=== PATIENT | female | born 1975 | race Caucasian/White ===

== ENCOUNTER 2023-09-13 10:04 | Emergency (ER) | payer OTHER, SELFPAY ==
[2023-09-13 10:05] VITALS: BP 124/87; PULSE 103; RESP 16; TEMP 37.1; O2SAT 100; BMI 45.9
--- NOTE | 2023-09-13 10:20 | EX.ED.DYSGE1 ---
HPI History of Present Illness Chief Complaint: Cold Sx Detail of Chief Complaint: Like symptoms Informant: patient and spouse/S.O. Onset/Context/Timing Onset: Days (Monday, September 10) Context: Sudden Onset Timing: Continuous and Waxes and wanes Quality: Flulike symptoms Location: Respiratory and GI Current Severity: Moderate Maximum Severity: Severe Worsened by: Nothing specific Relieved by: nothing Associated Symptoms Associated Symptoms: Document in the HPI narrative Narrative Narrative: Patient is a 48-year-old woman with history of obesity on medication for obesity and fibromyalgia who presents with flulike symptoms. She has been exposed to multiple workers with influenza type B. She is concerned that she may have it. Apparently she has a grandchild that is immune suppressed and would like to know since she exposed him yesterday. She does report fever, chills, rhinorrhea, congestion, sore throat. Her cough is nonproductive. She has had intermittent wheezing. She also endorses intermittent shortness of breath at rest and has dyspnea on exertion compared to normal. She denies history of VTE. She has no risk factors for VTE. She denies leg pain, swelling discoloration. She denies symptoms of claudication. She does report abdominal pain with nausea, which she states is minimal. She has had 4 loose stools in the last 3 hours. She has not noted any blood or mucus in her stool. She does endorse thirst, dry mouth, orthostatic lightheadedness and decreased urine output. She has no other urinary symptoms. Prior similar symptoms: No Recent Illness/Hospitalization: No PFSH PFSH Medical History (Updated 09/13/23 @ 12:[address] Tera Ervin MD) Cough Allergy/AdvReac Type Severity Reaction Status Date / Time acetaminophen [From Vicodin] Allergy Mild Hives Verified 09/13/23 10:14 cephalexin [From Keflex] Allergy Mild Hives Verified 09/13/23 10:14 clams Allergy Mild Anaphylaxis Verified 09/13/23 10:14 codeine Allergy Mild Hives Verified 09/13/23 10:14 hydrocodone [From Vicodin] Allergy Mild Hives Verified 09/13/23 10:14 Surgical History no surgical history no surgical history Social History (Updated 09/13/23 @ 10:[address] Tera Ervin MD) household members: spouse Smoking Status: Unknown if ever smoked substance use type: does not use ROS ROS ED Constitutional Constitutional ED: Reports chills, fever(s) and subjective; Denies sweats or weight loss Eyes Eyes: Denies blurry vision, change in vision or diplopia ENT ENT ED: Reports rhinorrhea and sore throat; Denies ear pain Cardiovascular Cardiovascular: Denies chest pain, orthopnea, palpitations or paroxysmal nocturnal dyspnea Respiratory/Chest Respiratory/Chest: Reports cough, dyspnea and dyspnea on exertion; Denies orthopnea, paroxysmal nocturnal dyspnea or sputum Gastrointestinal Gastrointestinal: Reports abdominal pain, diarrhea, nausea and vomiting; Denies constipation or melena Genitourinary Genitourinary ED: Reports other Details: Decreased urine output ; Denies dysuria, hematuria or urinary frequency Musculoskeletal Musculoskeletal: Reports arthralgias, back pain and myalgias; Denies neck pain Integumentary Denies rash Neurologic Neurologic: Reports headache(s) and weakness; Denies paresthesias Hematologic/Lymphatic Hematologic/Lymphatic: Reports systems reviewed and no addt'l complaints, except as documented EXAM Physical Exam Const Vital Signs: 09/13/23 10:05 09/13/23 11:48 Temperature 98.8 F 99.1 F Temperature Source Oral Pulse Rate 103 H 92 Respiratory Rate 16 18 Blood Pressure 124/87 H 130/71 H Blood Pressure Mean 99 90 Pulse Ox 100 99 Oxygen Delivery Method Room Air Positive well nourished, well developed and obese Constitutional Narrative: Patient appears ill but not toxic. Vital signs are marked for rapid heart rate General Appearance ED: well developed; Negative for cyanotic, diaphoretic or pallor Nutritional Appearance: obese HEENT Reports dry mucous membranes HEENT Narrative: Head is atraumatic normocephalic. Posterior pharynx out erythema or exudate. Nares patent with clear discharge noted. Mouth ED: Yes dry mucous membranes Mouth: dry mucous membranes Eyes PERRL and EOMs intact bilaterally General Eye ED: Negative for pale conjunctiva or scleral icterus Neck no lymphadenopathy, supple and no JVD Neck Narrative: Trachea is midline. There is no inspiratory or expiratory stridor. Chest Wall inspection of chest normal and palpation of chest normal Resp normal respiratory effort and No clear to auscultation bilaterally Auscultation: wheezes expiratory wheezes and scattered wheezes Cardio regular rhythm, S1 normal heart sound, S2 normal heart sound and no murmurs Rate: tachycardic GI normal to inspection, nondistended, normoactive bowel sounds, non-tender, non-distended and no masses; Negative for hepatosplenomegaly Palpation: soft Extremity normal to inspection Extremity Narrative: Patient has hair on her toes. General Extremety ED: Negative for edema or tenderness General Extremity: Negative for edema Neuro oriented x3, CN's II-XII intact bilaterally and no sensory deficits noted Sensorium / Orientation: alert Psych mental status grossly normal Skin no rashes or lesions noted, no wounds and skin turgor normal General Skin Exam: Negative for jaundice or pallor MDM MDM MDM Narrative Medical decision making narrative: Patient has flulike symptoms. Most likely this represents influenza. Because she has an immune suppressed godchild who was with her yesterday will assess for influenza. Since she is wheezing we will have respiratory instruct her how to use the albuterol inhaler. Clinically she is dehydrated. IV was established. She received 1 L normal saline. Because she has had poor p.o. intake for the past 48 hours will obtain BMP to assess renal function and electrolytes. Lab Data Attestation: I reviewed the patient's lab results. Lab results narrative: BMP is unremarkable. Rapid antigen for COVID, influenza and RSV was positive for type a influenza Labs: Laboratory Results - last 24 hr 09/13/23 10:30 Sodium 139 Potassium 3.8 Chloride 109 H Carbon Dioxide 22.0 Anion Gap 8 BUN 12 Creatinine 0.72 Estim Creat Clear Calc 112.82 Est GFR (MDRD) Af Amer 111 Est GFR (MDRD) Non-Af 91 BUN/Creatinine Ratio 16.7 Glucose 88 Calcium 9.0 Differential Diagnosis Chest pain/SOB: pulmonary embolism Reason(s) PE less likely: Positive for Well's <3, not hypoxic and Other (Symptoms are consistent with viral infection.), pneumonia Reason(s) pneumonia less likely: Positive for no noted fever and other (Symptoms are consistent with flu symptoms and patient has no egophony or increased vocal fremitus) and CHF Reason(s) CHF less likely: Positive for no significant peripheral edema, no orthopnea and other (History is not consistent with congestive heart failure.) Discharge Plan Triage Chief Complaint: Cold Sx ED Provider: Tera Ervin Dx/Rx/DC Orders Clinical Impression: Type A influenza, BMI 45.0-49.9, adult, Fibromyalgia, Acute dehydration, Sinus tachycardia seen on monitor technician Instructions: ED Influenza (Adult) Primary Care Provider: Mina Pereyra Referrals: Mina Pereyra, [employer] [Primary Care Provider] - 10-14 Days if not better Disposition Disposition: Home, Self Care
[2023-09-13] MEDS: Ondansetron 4 MG/2 ML Vial IV (10:31)
[2023-09-13] MEDS: 0.9% Normal Saline (1000mL) 1,000 ML 1000 ML IV (10:31)
[2023-09-13] MEDS: Albuterol Sulfate 8 gm Inhaler (60 puffs) 4 PUFF INHALATION (10:46)
[2023-09-13 11:07] LABS: Anion Gap 8 (5-15); BUN 12 mg/dL (7-18); BUN/Creat Ratio 16.7 RATIO (10-20); Chloride 109 mmol/L (98-107); Creatinine, Serum 0.72 mg/dL (0.55-1.02); EST Glomerular Filtration Rate 91 mL/min (>60); Est Glom Filt Rate - Afr Amer 111 mL/min (>60); Estimated Creatinine Clearance 112.82 ml/min; Glucose 88 mg/dL (74-106); Potassium 3.8 mmol/L (3.5-5.1); Sodium Level 139 mmol/L (136-145)
[2023-09-13 11:48] VITALS: BP 130/71; PULSE 92; RESP 18; TEMP 37.3; O2SAT 99
== END 2023-09-13 12:36 | disposition home or self-care (01) ==
PROVIDERS: Emergency Provider Emergency Medicine; PCP Nurse Practitioner Family; Visit Provider Emergency Medicine
DX: J10.1 Influenza due to other identified influenza virus with other respiratory manifestations (principal); E86.0 Dehydration; R00.0 Tachycardia, unspecified; R10.9 Unspecified abdominal pain; M79.7 Fibromyalgia; R11.0 Nausea; E66.9 Obesity, unspecified
CPT/HCPCS: 80048; 87631; 96361; 96374; 99283; J7030; A4216; J2405